=== PATIENT | female | born 1985 | race Caucasian/White ===

== ENCOUNTER 2016-12-01 12:47 | Observation (INO) ==
[2016-12-01] MEDS ORDERED: 0.9 % Sodium Chloride 1,000 ML IVC ONE (13:00)
--- NOTE | 2016-12-01 13:05 | Emergency Department Note ---
Disposition Clinical Impression: TIA (transient ischemic attack) Qualifiers: Transient cerebral ischemia type: unspecified Qualified Code(s): G45.9 - Transient cerebral ischemic attack, unspecified Disposition: Admitted As Inpatient Condition: Fair Time of Disposition: 16:00 Neuro HPI - General Chief Complaint: ED Neuro Symptoms/Deficit Stated Complaint: TIa symptoms Time Seen by Provider: 12/01/16 12:54 Source: patient Mode of arrival: ambulatory Limitations: no limitations Nursing Notes Reviewed: Yes Vital Signs Reviewed: Yes - History of Present Illness HPI Narrative: 31-year-old female with history of PCOS on Clomid for fertility treatments, history of hypothyroidism, presents with acute neurologic symptoms including left facial droop and her and dysarthria, last known well was essentially evening at 9:30. Her noticed that she was talking very slowly and she stated that it felt like she could not form words with her mouth. Should no other symptoms and currently still denies any chest pain shortness of breath recent fever chills hemoptysis or leg swelling. Patient states that she was feeling better and she drove to work should no blurred vision and was able to drive easily. 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 This was throughout the day today. They made her come down to the emergency department to be evaluated. Patient again denies any symptoms right now and states that the slurred speech is gone. She denies headache double vision, focal weakness, fever chills hematochezia hematemesis hematuria, weight changes. She states she has not had her thyroid checked in a while. Onset of Symptoms Date: 11/30/16 Onset of Symptoms Time: 21:30 Symptom Onset Unknown: Yes Timing confirmed by: spouse Location: speech, left face History of same: No Severity: mild Quality: numbness Symptoms Improving: Yes Improves with: none Worsens with: none Context: gradual onset On Anticoagulants: No Associated symptoms: Denies: confusion, chest pain, cough, diaphoresis, headaches, loss of appetite, malaise, nausea/vomiting, seizures, shortness of breath Treatments Prior to Arrival: none - Related Data Home Medications: Home Medications Medication Instructions Recorded Confirmed Letrozole [Femara] 2.5 mg PO DAILY 12/01/16 12/01/16 Levothyroxine [Synthroid] 88 mcg PO DAILY 12/01/16 12/01/16 Progesterone,Micronized 200 mg PO DAILY 12/01/16 12/01/16 [Progesterone] Allergies/Adverse Reactions: Allergies Allergy/AdvReac Type Severity Reaction Status Date / Time No Known Allergies Allergy Verified 12/01/16 13:23 All systems ED: reviewed and negative except as stated. Review of Systems: As Per HPI Constitutional: Denies: fever, chills, weakness Eyes: Denies: eye pain ENT ED: Denies: ear pain Cardiovascular: Denies: chest pain, palpitations Respiratory: Denies: cough, dyspnea Gastrointestinal: Denies: abdominal pain, nausea, vomiting, diarrhea Genitourinary: Reports: abnormal menses. Denies: urgency, hematuria Musculoskeletal: Denies: back pain Integumentary: Denies: rash Neurological: Reports: as per HPI, numbness. Denies: headache, weakness, paresthesias, confusion, abnormal gait, vertigo Psychiatric: Denies: anxiety, depression Endocrine: Denies: fatigue Past Medical History - Past Medical History Attestation: Yes The following information was validated with the patient. Source: patient Medical history: Reports: thyroid disease Psychiatric history: Reports: no psych history - Social History Smoking Status: Never smoker Alcohol use: Reports: none Drug use: Reports: none Physical Exam - General General appearance: alert, in no apparent distress - Head Head exam: atraumatic - Eye Eye exam: Present: normal appearance, PERRL, EOMI - ENT ENT exam: normal exam, normal oropharynx - Neck Neck exam: Present: normal inspection, full ROM, trachea midline - Chest Chest inspection: Present: normal inspection, symmetric chest wall rise - Respiratory Respiratory exam: Present: normal lung sounds bilaterally. Absent: respiratory distress - Cardiovascular Cardiovascular exam: Present: tachycardia - Abdominal Exam Abdominal exam: Present: soft, Non-Tender. Absent: guarding, rigidity - Extremities Exam Extremities exam: Present: normal inspection, full ROM - Expanded Lower Extremity Exam Hip/Pelvis exam: Present: normal inspection, full ROM - Back Exam Back exam: Present: normal inspection, full ROM. Absent: CVA tenderness (R), CVA tenderness (L) - Neurological Exam Neurological exam: Present: alert, oriented X3, CN II-XII intact, normal gait, motor sensory deficit, reflexes normal - Expanded Neurological Exam Patient oriented to: Present: person, place, time Speech: Present: fluid speech Cranial nerves: EOM function (II, III, IV, ): Normal, facial sensation (V): Normal, facial palsy (VII): Normal, gag reflex (IX): Normal, spinal accessory function (XI): Normal, tongue deviation (XII): Normal Cerebellar function: finger to nose: Normal, heel to becker: Normal Cerebellar function: normal gait, Romberg normal Motor strength - LUE: 5/5 Motor strength - RUE: 5/5 Motor strength - LLE: 5/5 Motor strength - RLE: 5/5 Sensory exam upper extremity: light touch: Normal Sensory exam lower extremity: light touch: Normal Coma Scale Eye Opening: Spontaneous Coma Scale Motor Response: Obeys Commands Coma Scale Verbal Response: Oriented Coma Scale Total: 15 - Psychiatric Psychiatric exam: Present: normal affect, normal mood - Skin Skin exam: Present: warm, dry, intact, normal color Course Course Narrative: 31-year-old female with acute onset neurologic symptoms yesterday evening, she is outside the window for stroke alert and also has symptoms that are appear to be either TIA or psychosomatic, however given that she had slurred speech and facial droop that was noticed, plan for stat CT head noncontrast, also will check a d-dimer as she is tachycardic on exam, she is no other history for pulmonary embolus or DVTs however she is on fertility treatments. Basic lab work rehydrate with fluids likely admission for further imaging - Reevaluation(s) Reevaluation #1: Patient with negative d-dimer, negative CT head, plan for admission to hospital service and spoke with Dr. Martin agrees with plan for admission. Hospitalist to order aspirin, though at this time given age no histroy, given asymptomatic with NIH of O unlikely to be TIA, but cannot rule out without MRI. Time: 17:08 Vital Signs Temperature 98.9 F 12/01/16 12:49 Pulse Rate 124 12/01/16 12:49 Respiratory Rate 20 12/01/16 12:49 Blood Pressure 152/85 12/01/16 12:49 O2 Sat by Pulse Oximetry 98 12/01/16 12:49 Temperature 99.3 F 12/01/16 16:35 Pulse Rate 118 12/01/16 16:35 Respiratory Rate 14 12/01/16 16:35 Blood Pressure 150/84 12/01/16 16:35 O2 Sat by Pulse Oximetry 97 12/01/16 16:35 Oxygen Delivery Oxygen Delivery Room Air Neuro Symptoms/Deficit - Differential Diagnosis Likely: transient cerebral ischemia - Medical Records Medical records reviewed: Yes I reviewed the patient's medical records. - Lab Data Lab results reviewed: Yes I reviewed the patient's lab results. Result diagrams: 12/01/16 13:20 12/01/16 13:20 Lab Results 12/01/16 12/01/16 12/01/16 Range/Units 13:19 13:20 13:20 WBC 11.1 (4.3-11.1) K/mcL RBC 5.16 H (3.82-4.97) M/mcL Hgb 13.3 (11.5-15.4) g/dL Hct 42.8 (35.3-44.9) % MCV 82.9 L (83.0-100.0) fL MCH 25.8 L (28.0-33.3) pg MCHC 31.1 L (31.6-35.5) g/dL RDW 15.2 H (11.5-14.5) % Plt Count 279 (140-400) K/mcL MPV 9.3 L (9.4-12.4) fL Immature Gran % 0.2 (0-4) % Seg Neutrophils % 64.7 % Lymphocytes % 30.4 % Monocytes % 3.3 % Eosinophils % 1.2 % Basophils % 0.2 % Neutrophils # 7.2 (1.6-8.9) K/mcL Lymphocytes # 3.4 (0.6-4.6) K/mcL Monocytes # 0.4 (0.0-1.3) K/mcL Eosinophils # 0.1 (0.0-0.6) K/mcL Basophils # 0.0 (0.0-0.2) K/mcL D-Dimer < 215 (0-500) ng/mLFEU Sodium (136-145) mEq/L Potassium (3.5-4.5) mEq/L Chloride (98-109) mEq/L Carbon Dioxide (19-29) mEq/L BUN (7-20) mg/dL Creatinine (0.57-1.11) mg/dL Est GFR ( Amer) (> 60) Est GFR (Non-Af Amer) (> 60) BUN/Creatinine Ratio (6-26) Glucose (70-99) mg/dL Calculated Osmolality (280-300) Calcium (8.6-10.8) mg/dL Troponin I (0-0.03) ng/mL TSH (0.350-4.840) mcIU/mL Urine Color Yellow (Yellow) Urine Clarity Cloudy A (Clear) Urine pH 5.5 (5.0-8.0) pH Units Ur Specific [place] > 1.030 H (1.010-1.025) Urine Protein Negative (Neg-Trace) mg/dL Urine Glucose (UA) Normal (Normal) mg/dL Urine Ketones Negative (Negative) mg/dL Urine Blood Negative (Negative) Urine Nitrite Negative (Negative) Urine Bilirubin Negative (Negative) Urine Urobilinogen Normal (Normal) mg/dL Ur Leukocyte Esterase Negative (Negative) Urine Microscopic RBC 0-3 (0-3) per hpf Urine Microscopic WBC 15-30 H (0-3) per hpf Ur Squamous Epith Cells Many H (None-Few) per lpf Urine Bacteria Many H (None-Few) per hpf Ur Culture Indicated? NO (NO) Urine Test (Negative) 12/01/16 12/01/16 12/01/16 Range/Units 13:20 13:20 13:24 WBC (4.3-11.1) K/mcL RBC (3.82-4.97) M/mcL Hgb (11.5-15.4) g/dL Hct (35.3-44.9) % MCV (83.0-100.0) fL MCH (28.0-33.3) pg MCHC (31.6-35.5) g/dL RDW (11.5-14.5) % Plt Count (140-400) K/mcL MPV (9.4-12.4) fL Immature Gran % (0-4) % Seg Neutrophils % % Lymphocytes % % Monocytes % % Eosinophils % % Basophils % % Neutrophils # (1.6-8.9) K/mcL Lymphocytes # (0.6-4.6) K/mcL Monocytes # (0.0-1.3) K/mcL Eosinophils # (0.0-0.6) K/mcL Basophils # (0.0-0.2) K/mcL D-Dimer (0-500) ng/mLFEU Sodium 141 (136-145) mEq/L Potassium 3.5 (3.5-4.5) mEq/L Chloride 105 (98-109) mEq/L Carbon Dioxide 25 (19-29) mEq/L BUN 13 (7-20) mg/dL Creatinine 0.72 (0.57-1.11) mg/dL Est GFR ( Amer) > 60 (> 60) Est GFR (Non-Af Amer) > 60 (> 60) BUN/Creatinine Ratio 18 (6-26) Glucose 82 (70-99) mg/dL Calculated Osmolality 291 (280-300) Calcium 9.5 (8.6-10.8) mg/dL Troponin I 0.00 (0-0.03) ng/mL TSH 2.269 (0.350-4.840) mcIU/mL Urine Color (Yellow) Urine Clarity (Clear) Urine pH (5.0-8.0) pH Units Ur Specific [place] (1.010-1.025) Urine Protein (Neg-Trace) mg/dL Urine Glucose (UA) (Normal) mg/dL Urine Ketones (Negative) mg/dL Urine Blood (Negative) Urine Nitrite (Negative) Urine Bilirubin (Negative) Urine Urobilinogen (Normal) mg/dL Ur Leukocyte Esterase (Negative) Urine Microscopic RBC (0-3) per hpf Urine Microscopic WBC (0-3) per hpf Ur Squamous Epith Cells (None-Few) per lpf Urine Bacteria (None-Few) per hpf Ur Culture Indicated? (NO) Urine Test Negative (Negative) - Radiology Data Radiology results reviewed: Yes I reviewed the patient's radiology results. Head CT 12/01/16 13:00 IMPRESSION: No acute intracranial abnormality. D/ / 12/01/2016 15:01:43 Kathe Najera MD / [place] Interpreting Provider: Kathe Najera MD Chest X-Ray 12/01/16 13:01 IMPRESSION: No acute process. D/ / Huang Alonso MD / Huang Alonso MD Interpreting Provider: Huang Alonso MD - EKG Data EKG attestation: Yes I reviewed and interpreted this EKG. EKG shows normal: sinus rhythm Rate: tachycardia (1 16 bpm WV 156 QRS 86 QTc [address] segment elevations or depressions.) Rhythm: NSR Mccoy/QRS: normal Interpretation: normal EKG - Core Measures AMI Core Measures Followed: No NIH Stroke Scale - Level of Consciousness LOC: Alert - LOC Questions LOC Questions: Answers both correctly - LOC Commands LOC Commands: Performs both correctly - Best Gaze Best Gaze: Normal - Visual Visual: No visual loss - Facial Palsy Facial Palsy: Normal - Motor Arms Motor Arm-Left: No drift for 10 seconds Motor Arm-Right: No drift for 10 seconds - Motor Legs Motor Leg-Left: No drift for 5 seconds Motor Leg-Right: No drift for 5 seconds - Limb Ataxia Limb Ataxia: Absent of affected limb too weak to perform exam - Sensory Sensory: Normal - Best Language Best Language: No aphasia - Dysarthria Dysarthria: Normal - Extinction and Inattention Extinction and Inattention: Normal - NIHSS Total Score NIHSS Total Score: 0 Attestation Statement - Attestation Attestation: I examined this patient and my medical decision-making was reviewed with the Resident Physician. I agree with the documented findings, disposition and treatment plan as described except to the extent set forth below. 31-year-old female with neurological symptoms of near-syncope as well as transient facial droop now resolved. CT of the head shows no acute findings. D-dimer is negative. We will admit for further evaluation of possible TIA symptoms.
[2016-12-01 13:28] LABS: Basophils % 0.2 %; Eosinophils # 0.1 K/mcL (0.0-0.6); Eosinophils % 1.2 %; Hematocrit 42.8 % (35.3-44.9); Hemoglobin 13.3 g/dL (11.5-15.4); Immature Granulocytes % 0.2 % (0-4); Lymphocytes # 3.4 K/mcL (0.6-4.6); Lymphocytes % 30.4 %; Mean Corpuscular HGB Conc 31.1 g/dL (31.6-35.5); Mean Corpuscular Hemoglobin 25.8 pg (28.0-33.3); Mean Corpuscular Volume 82.9 fL (83.0-100.0); Mean Platelet Volume 9.3 fL (9.4-12.4); Monocytes # 0.4 K/mcL (0.0-1.3); Monocytes % 3.3 %; Neutrophils # 7.2 K/mcL (1.6-8.9); Platelet Count 279 K/mcL (140-400); Red Blood Count 5.16 M/mcL (3.82-4.97); Red Cell Distribution Width 15.2 % (11.5-14.5); Segmented Neutrophils % 64.7 %
[2016-12-01 13:39] LABS: BUN/Creatinine Ratio 18 (6-26); Blood Urea Nitrogen 13 mg/dL (7-20); Calcium 9.5 mg/dL (8.6-10.8); Carbon Dioxide 25 mEq/L (19-29); Chloride 105 mEq/L (98-109); Glucose 82 mg/dL (70-99); Osmolality,Calculated 291 (280-300); Potassium 3.5 mEq/L (3.5-4.5); Sodium 141 mEq/L (136-145); eGFR For African Americans > 60 (> 60); eGFR For Non-African Americans > 60 (> 60)
[2016-12-01 13:41] LABS: Bilirubin,Urine Negative (Negative); Blood,Urine Negative (Negative); Clarity,Urine Cloudy (Clear); Color,Urine Yellow (Yellow); Glucose,Urine (UA) Normal (Normal); Ketones,Urine Negative (Negative); Leukocyte Esterase,Urine Negative (Negative); Nitrite,Urine Negative (Negative); PH,Urine 5.5 pH Units (5.0-8.0); Protein,Urine Negative (Neg-Trace); Specific Gravity,Urine > 1.030 (1.010-1.025); Urobilinogen,Urine Normal (Normal)
[2016-12-01 13:43] LABS: Bacteria,Urine Many per hpf (None-Few); Squamous Epithelial Cell,Urine Many per lpf (None-Few); WBC,Urine 15-30 per hpf (0-3)
[2016-12-01 13:54] LABS: RBC,Urine 0-3 per hpf (0-3)
[2016-12-01 14:02] LABS: Thyroid Stimulating Hormone 2.269 mcIU/mL (0.350-4.840)
--- NOTE | 2016-12-01 16:55 | Event Note ---
Date of Encounter: 12/01/16 Time of Encounter: 16:50 Patient seen and examined with nurse practitioner. 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 She was sent to the emergency room after she was noted by one of the nurses to have possible facial droop. She was neurologically intact during my interview and even since arrival to the emergency room. Patient denies any prior history suggestive of hypercoagulable state. She is on hormonal therapy however she denies prior history of DVT pulmonary embolism. No family history suggestive of hypercoagulable state. Patient mentioned that she is currently under a lot of stress. So there is a possibility that her symptoms may be functional
[2016-12-01] MEDS ORDERED: Acetaminophen 325 MG TABLET PO PRN (16:57)
[2016-12-01] MEDS ORDERED: Naloxone 0.4 MG/ML INJ IVP PRN (16:57)
--- NOTE | 2016-12-01 17:10 | Internal Med History&Physical ---
Date of Encounter: 12/01/16 Time of Encounter: 17:04 Assessment and Plan (1) TIA (transient ischemic attack) Current visit: Yes Status: Acute Left facial droop, BL hand N/T, and dysarthria which began yesterday but immediately improved, and recurred this afternoon. CT negative, symptoms have subsided. She is neurologically intact with no focal neuro deficits on exam. No prior h/o CVA/TIA. On Letrazole, clomid and Progesterone for PCOS, will stop these medications. MRI head and brain without contrast in AM. Echocardiogram BL carotid Doppler NIHSS, Q shift neuro checks, increase frequency of neuro checks if neuro status changes Consider consulting neuro based on MRI results CBC, BMP in am Qualifiers: Transient cerebral ischemia type: unspecified Qualified Code(s): G45.9 - Transient cerebral ischemic attack, unspecified (2) Facial droop Current visit: Yes Status: Acute has subsided, continue to monitor, see TIA plan above (3) Dysarthria Current visit: Yes Status: Acute Has subsided at this time. Continue to monitor neuro status, see plan above. (4) PCOS (polycystic ovarian syndrome) Current visit: Yes Status: Acute on femara and progesterone, can contribute to TIA risk. Stop progesterone and femara for now. (5) Hypothyroid Current visit: Yes Status: Acute TSH 2.269, continue levothyroxine Qualifiers: Hypothyroidism type: unspecified Qualified Code(s): E03.9 - Hypothyroidism , unspecified (6) DVT prophylaxis Current visit: Yes Status: Acute Low risk for DVT, up ad adin. Internal Medicine - H&P: HPI Chief complaint: LEFT FACIAL DROOP, DYSARTHRIA Admitted From: Home Plans for Post Hospital Care: Home History of present illness: Ms. Haley is a 31 year old female with a PMH of hypothyroidism and PCOS on clomid and progesterone who presents today to [facility] with acute neurological symptoms including intermittent BL hand n/t, left facial droop and dysarthria. Last known well was yesterday evening, she reports that shortly after dinner she began to feel dizzy, drowsy, and feel like her arms were heavy. Her noticed that she was having slurred speech. The symptoms quickly subsided and she went to bed. 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 Upon arrival to ED, symptoms had subsided, she denies any H/A, vision changes, motor ataxias, chest pain, dyspnea, fevers, or flu like symptoms. Workup in ED included head CT which showed no acute intracranial process, CXR shows no acute pulmonary process, TSH 2.269, CBC, CMP are unremarkable. No longer symptomatic and resting comfortably in bed. Being admitted d/t concern for TIA. Past Med Surg Social Fam HX - Past Medical History Medical history: thyroid disease Psychiatric history: no psych history - Past Surgical History Surgical History: no surgical history - Social History Smoking Status: Never smoker Smokeless Tobacco Status: No Alcohol use: none Drug use: none - Family History Father Hx Family Endocrine Disorder: Yes (DM) Hx Family Medical Disorders: Yes (HEMOCHROMATOSIS) Internal Medicine - H&P: Meds Letrozole [Femara] 2.5 mg PO DAILY 12/01/16 [History] Levothyroxine [Synthroid] 88 mcg PO DAILY 12/01/16 [History] Progesterone,Micronized [Progesterone] 200 mg PO DAILY 12/01/16 [History] 3 Allergy/AdvReac Type Severity Reaction Status Date / Time No Known Allergies Allergy Verified 12/01/16 13:23 All Systems PM: A 10-system review of systems was performed and is negative for pertinent findings except as documented above in the HPI. - Constitutional Constitutional: no chills, no fever(s), no night sweats - EENT Eyes: no change in vision, no discharge, no pain, no photophobia Ears: no ear discharge, no ear pain, no tinnitus Nose, mouth and throat: no dysphagia, no nasal discharge, no neck pain, no sore throat - Cardiovascular Cardiovascular ROS IM: no chest pain, no diaphoresis, no dyspnea, no lightheadedness, no palpitations, no syncope - Respiratory Respiratory: no cough, no dyspnea, no wheezing, no excessive phlegm production - Gastrointestinal Gastrointestinal: no abdominal pain, no diarrhea, no hematemesis, no hematochezia, no melena, no nausea, no vomiting - Genitourinary Genitourinary: no change in urinary stream, no dysuria, no flank pain, no hematuria - Musculoskeletal Musculoskeletal ROS IM: no numbness, no tingling - Integumentary Integumentary IM: no rash, no unusual bruising - Neurological Neurological ROS: no confusion, no convulsions, no focal weakness, no numbness, no tingling, no tremor(s) - Hematologic/Lymphatic Hematologic/Lymphatic: no easy bruising - Constitutional Vitals: Temp Pulse Resp BP Pulse Ox 99.3 F 118 14 150/84 97 12/01/16 16:35 12/01/16 16:35 12/01/16 16:35 12/01/16 16:35 12/01/16 16:35 General appearance: Present: cooperative, A&O X 3, no acute distress, answers questions appropriately - Head Head exam: Present: atraumatic, normocephalic - Eye Eye exam: Present: PERRL, conjuntiva pink, sclera anicteric Pupils: Present: PERRL - Neck Neck exam general surgery: Present: supple, trachea midline. Absent: lymphadenopathy - Respiratory Respiratory exam: Present: CTAB. Absent: accessory muscle use, rales, rhonchi, wheezes - Cardiovascular Cardiovascular exam: Present: RRR, +S1, +S2. Absent: diastolic murmur, gallop, rubs, systolic murmur - GI/Abdominal GI/Abdominal exam: Present: normal bowel sounds, soft, no peritoneal signs. Absent: distended, tenderness - Extremities Exam Extremities exam: Present: warm, radial pulses palpable and symmetrical. Absent : calf tenderness, cyanotic, pedal edema - Neurological Exam Neurological exam: Present: CN II-XII intact, oriented X3, no focal deficits. Absent: pronater drift, facial droop, speech deficit - Skin Skin exam: Present: dry, intact Internal Med - H&P Results - Labs CBC & Chem 7: 12/01/16 13:20 12/01/16 13:20 - EKG Data Prior EKG available for review: no - Diagnostic Studies Chest x-ray Status: image reviewed by me Additional comments: No acute pulmonary process CT scan - head Status: image reviewed by me Additional comments: no acute intracranial process - VTE Reasons for not Prescribing Prophylaxis: Treatment not Indicated - Low risk for VTE
[2016-12-01] MEDS: Aspirin 81 MG TAB.CHEW PO SCH (18:07)
[2016-12-01] MEDS ORDERED: Perflutren Lipid Microsphere 1.3 ML in 0.9 % Sodium Chloride 8.7 ML IVP ONE (19:53)
[2016-12-02 05:48] LABS: Basophils % 0.4 %; Eosinophils # 0.1 K/mcL (0.0-0.6); Eosinophils % 1.6 %; Hematocrit 36.9 % (35.3-44.9); Hemoglobin 11.8 g/dL (11.5-15.4); Immature Granulocytes % 0.4 % (0-4); Lymphocytes # 3.1 K/mcL (0.6-4.6); Lymphocytes % 36.4 %; Mean Corpuscular Hemoglobin 26.5 pg (28.0-33.3); Mean Corpuscular Volume 82.7 fL (83.0-100.0); Mean Platelet Volume 9.3 fL (9.4-12.4); Monocytes # 0.4 K/mcL (0.0-1.3); Monocytes % 4.7 %; Neutrophils # 4.8 K/mcL (1.6-8.9); Platelet Count 208 K/mcL (140-400); Red Blood Count 4.46 M/mcL (3.82-4.97); Red Cell Distribution Width 15.1 % (11.5-14.5); Segmented Neutrophils % 56.5 %
[2016-12-02 06:02] LABS: BUN/Creatinine Ratio 14 (6-26); Blood Urea Nitrogen 9 mg/dL (7-20); Calcium 8.7 mg/dL (8.6-10.8); Carbon Dioxide 25 mEq/L (19-29); Chloride 108 mEq/L (98-109); Glucose 95 mg/dL (70-99); Osmolality,Calculated 290 (280-300); Potassium 3.8 mEq/L (3.5-4.5); Sodium 141 mEq/L (136-145); eGFR For African Americans > 60 (> 60); eGFR For Non-African Americans > 60 (> 60)
--- NOTE | 2016-12-02 07:20 | Carotid Imaging Report ---
Carotid Duplex Patient Name:Melissa Haley Order Number:[id number] Procedure Date:12/01/2016 Date:1985Age:31 yrs Gender:Female Location:[facility] Room #: [id number] [employer]:Juju Hampton RDCS Referring MD:Eusebio Ellis CNP corporate statistical financial analyst:Shantell Mallory, DO Reading MD:Britton Voss MD Primary Indications:New left facial drop, Dysarthria Impressions: The bilateral carotid arteries are normal throughout. Recommendations: After imaging the patient returned to their room. Findings Prior Study: No prior study available for comparison. Carotid Results Right PSV EDV Assessment Proximal CCA 116 31 Normal Mid CCA 102 33 Normal Distal CCA 99 32 Normal Bifurcation 104 31 Normal Proximal ICA 89 30 Normal Mid ICA 102 52 Normal Distal ICA 87 51 Normal ECA 70 19 Normal Vertebral Artery 84 31 Antegrade Flow Left PSV EDV Assessment Proximal CCA 133 28 Normal Mid CCA 93 28 Normal Distal CCA 82 28 Normal Bifurcation 93 33 Normal Proximal ICA 97 35 Normal Mid ICA 101 46 Normal Distal ICA 104 44 Normal ECA 85 18 Normal Vertebral Artery 51 21 Antegrade Flow Ratio's Right ICA/CCA Ratio: 1.00 ICA/CCA Values: 102/102 Left ICA/CCA Ratio: 1.12 ICA/CCA Values: 104/93 Updated by Britton Voss MD on 12/02/2016 7:11:34 AM electronically signed on 12/02/2016 7:11:49 AM with status of Final
[2016-12-02] MEDS: Aspirin 81 MG TAB.CHEW PO SCH (08:19)
--- NOTE | 2016-12-02 09:44 | Discharge Summary ---
Date of Encounter: 12/02/16 Time of Encounter: 09:35 - Discharge Diagnosis (1) Dysarthria Priority: Primary Status: Acute Comments: Melissa Haley is a 31 y/o female with past medical history hypothyroidism and PoCS who presented to [facility] on 12/01/2016 with complaints of left facial droop and slurred speech. She was placed in observation status for further workup and treatment. Acute CVA was ruled out with negative brain MRI. She was evaluated by neurology who did not feel symptoms are consistent with demyelinating disorder. She was discharged home in stable condition. 1. Dysarthria: With left facial droop on day of presentation. Remained neurologically intact. Symptoms resolved spontaneously without intervention in ED. Head CT negative, TTE with EF 60% and normal diastolic/systolic function. Bilateral carotid Dopplers normal. Brain MRI showed subcortical showed ventricular white matter signal abnormality concerning for vasculitis, Lyme disease, possible demyelinating disease. Evaluated by neurology who did not feel symptoms were consistent with demyelinating disorder. MRI of cervical spine pending due to complaints of arm paresthesia and heaviness. If MRI of cervical spine is negative and the patient is to be discharged home. Recommend outpatient sleep study to assess for GAIL and daytime sleepiness. 2. PCOS: per hx. continue home progesterone and femara 3. Hypothyroidism: per hx. TSH 2.2. Continue home levothyroxine. 4. DVT prophylaxis: Heparin (2) PCOS (polycystic ovarian syndrome) Priority: Primary Status: Acute (3) Hypothyroid Priority: Primary Status: Acute Qualifiers: Hypothyroidism type: unspecified Qualified Code(s): E03.9 - Hypothyroidism , unspecified - Discharge Medications Home Medications: Letrozole [Femara] 2.5 mg PO DAILY 12/01/16 [History] Levothyroxine [Synthroid] 88 mcg PO DAILY 12/01/16 [History] Progesterone,Micronized [Progesterone] 200 mg PO DAILY 12/01/16 [History] Allergies/Adverse Reactions: 3 Allergy/AdvReac Type Severity Reaction Status Date / Time No Known Allergies Allergy Verified 12/01/16 13:23 Procedures/tests Complete & Pending: Procedures Performed prior 72 hours Category Date Time Status MR head/brain wo con [MR] Routine MRI 12/01/16 16:54 Draft EV carotid duplex imaging BI Routine Y 12/01/16 16:54 Completed EV echocardiogram w enhance Routine Y 12/01/16 16:54 Completed Date of admission: 12/01/16 15:58 Primary care physician: Shantell Aviles Discharging clinician: Lissa Jaramillo Anticipated date of discharge: 12/02/16 - Patient Status Disposition: Home, Self-Care Condition: Good Functional capacity at discharge: independent ambulation Overall status at discharge: patient is back to baseline - Discharge Instructions Follow Up With: Stefan-Shantell Louie DO [Primary Care Provider] - 12/03/16 11:15 am ( This appointment will be with Dr Simmons. ) - Diet and Activity Activity: resume usual activities as tolerated Diet: advance to your usual diet Interval History: Seen and examined at bedside. Patient is new to me, information obtained from chart review and patient report. Patient says she feels better and back to baseline. She has no complaints. Discussed MRI results with her and we are waiting on neurology consultation. Will likely discharge home after neurology has evaluated. Hospital course: See assessment and plan for hospital course - Time Spent with Patient Total time spent providing and/or coordinating discharge services: Less than 30 minutes - Constitutional Vitals: Temp Pulse Resp BP Pulse Ox 98.4 F 82 16 109/67 98 12/02/16 06:54 12/02/16 06:54 12/02/16 06:54 12/02/16 06:54 12/02/16 06:54 General appearance: Present: cooperative, A&O X 3, no acute distress, answers questions appropriately - Head Head exam: Present: atraumatic, normocephalic - Eye Eye exam: Present: PERRL, conjuntiva pink, sclera anicteric Pupils: Present: PERRL - Neck Neck exam general surgery: Present: supple, trachea midline. Absent: lymphadenopathy - Respiratory Respiratory exam: Present: CTAB. Absent: accessory muscle use, rales, rhonchi, wheezes - Cardiovascular Cardiovascular exam: Present: RRR, +S1, +S2. Absent: diastolic murmur, gallop, rubs, systolic murmur - GI/Abdominal GI/Abdominal exam: Present: normal bowel sounds, soft, no peritoneal signs. Absent: distended, tenderness - Extremities Exam Extremities exam: Present: warm, radial pulses palpable and symmetrical. Absent : calf tenderness, cyanotic, pedal edema - Neurological Exam Neurological exam: Present: CN II-XII intact, oriented X3, no focal deficits. Absent: pronater drift, facial droop, speech deficit - Skin Skin exam: Present: dry, intact - VTE Reasons for not Prescribing Prophylaxis: Treatment not Indicated - Low risk for VTE
[2016-12-02 10:52] VITALS: BP 129/76
--- NOTE | 2016-12-02 12:47 | Neurology - Consult Note ---
Date of Encounter: 12/02/16 Time of Encounter: 12:46 Assessment and Plan (1) Spell of altered consciousness Current Visit: Yes Status: Acute Two similar spells of sleepiness, arm heaviness, and paresthesia lasting less than 20 minutes, not exactly stereotypical, not associated with motor activity. unclear etiology. Unlikely epileptic. Could be related to daytime sleepiness? MRI of brain findings non-specific and chronic in nature. Not related to currently presentation. No consistent with demyelinating disorder. Will however , recommend MRI of cervical spine due to complaints of arm paresthesia and heaviness. May benefit from outpatient sleep study to assess possible untreated GAIL and daytime sleepiness. History of Present Illness Chief complaint: spells of altered mental status HPI: Ms. Haley is a 31 year old female with PMH significant for on progesterone therapy for 5 months, obesity who developed an episode altered mental status, arms feeling heavy, sleepiness and facial droop lasting 20 minutes yesterday. She also had a similar episodes few weeks ago without the feeling of arm heaviness. Symptoms all resolved. She completed MRI of brain which showed few nonspecific white matter signal changes mostly the subcortical white matter on the right side. Patient currently asymptomatic. Denies history of visual change,s diplopia or other neurological deficits. Does have obesity and daytime fatigue. Snores. Had overnight pulse oximetry in the past and was told not abnormal enough to warrant sleep study Past Med Surg Social Fam HX - Past Medical History Medical history: thyroid disease Psychiatric history: no psych history - Past Surgical History Surgical History: no surgical history - Social History Smoking Status: Never smoker Smokeless Tobacco Status: No Alcohol use: none Drug use: none - Family History Father Hx Family Endocrine Disorder: Yes (DM) Hx Family Medical Disorders: Yes (HEMOCHROMATOSIS) Medications and Allergies Letrozole [Femara] 2.5 mg PO DAILY 12/01/16 [History] Levothyroxine [Synthroid] 88 mcg PO DAILY 12/01/16 [History] Progesterone,Micronized [Progesterone] 200 mg PO DAILY 12/01/16 [History] 3 Allergy/AdvReac Type Severity Reaction Status Date / Time No Known Allergies Allergy Verified 12/01/16 13:23 All Systems: A 10-system review of systems was performed and is negative for pertinent findings except as documented above in the HPI. Physical Examination - Vital Signs Vital Signs: Initial Vital Signs Temp Pulse Resp BP Pulse Ox 98.9 F 124 20 152/85 98 12/01/16 12:49 12/01/16 12:49 12/01/16 12:49 12/01/16 12:49 12/01/16 12:49 - Neurologic Detailed motor examination: full strength in all major muscle groups Motor examination - right side: 07/02: deltoids, biceps, triceps, wrist flexion, wrist extension, windows server specialist, hip flexors, tibialis Anterior, quadriceps, toe extension (EHL), plantarflexion Motor examination - left side: 07/02: deltoids, biceps, triceps, wrist flexion, wrist extension, hip flexors, windows server specialist, quadriceps, tibialis Anterior, toe extension (EHL), plantarflexion Mental Status Examination: awake, alert, oriented to person, oriented to place, oriented to time, follows commands appropriately, answers questions appropriately, no agnosia, no aphasia, no aproxia Cranial nerve examination: PERRL, EOMI, visual morel intact, corneal reflexes brisk symmetrically, sensory to face intact, mastication intact, no facial asymmetry is present, no dysarthria, hearing is intact symmetrically, soft palate elevates bilaterally upon phonation, gag reflex intact, flexes SCM and trapezius muscles symmetrically with full power, tongue protrudes midline, no atrophy or facial fasiculations present Cerebellar examination: no dysmetria, performs finger to nose and heel to becker symmetrically without ataxia, no gait ataxia, no truncal ataxia, no difficulty with rapid alternating movements Results - Laboratory Findings CBC and BMP: 12/02/16 05:35 12/02/16 05:35 Abnormal lab findings: Abnormal lab results MCV 82.7 fL (83.0-100.0) L 12/02/16 05:35 MCH 26.5 pg (28.0-33.3) L 12/02/16 05:35 RDW 15.1 % (11.5-14.5) H 12/02/16 05:35 MPV 9.3 fL (9.4-12.4) L 12/02/16 05:35 Urine Clarity Cloudy (Clear) A 12/01/16 13:19 Ur Specific Upperco > 1.030 (1.010-1.025) H 12/01/16 13:19 Urine Microscopic WBC 15-30 per hpf (0-3) H 12/01/16 13:19 Ur Squamous Epith Cells Many per lpf (None-Few) H 12/01/16 13:19 Urine Bacteria Many per hpf (None-Few) H 12/01/16 13:19 Consult Discharge Plan - Plan Referrals: Shantell Mallory DO [Primary Care Provider] - 12/03/16 11:15 am ( This appointment will be with Dr Simmons. )
--- NOTE | 2016-12-03 08:12 | Electrocardiograph Report ---
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
== END 2016-12-02 18:15 | disposition home or self-care (01) ==
LOC: 3BNU 12:47 → EMEROO 12:47 → 3BNU 16:12
PROVIDERS: ADMIT Nurse Practitioner; ATTEND Registered Nurse